=== PATIENT | male | born 1990 | race Caucasian/White ===

== ENCOUNTER → 2016-11-12 | Outpatient (CLI) | payer BC ==
[~2016-11-12] MED LIST: METH4TAB27 PO
[2016-11-12 11:23] VITALS: BP 120/87
--- NOTE | 2016-11-12 11:23 | Urgent Care T Sheet Gen (E) ---
Intake General Temperature (Fahrenheit): 98.8 Pulse: 85 Blood Pressure Systolic: 120 Blood Pressure Diastolic: 87 Respirations: 20 SPO2: 97 Description of Symptoms Patient presents with illness x 3 days. Notes PND and productive cough. No fever. No history of allergies. Patient works at [employer] and states he is around dust but wears a respirator always. No meds to treat his symptoms. patient thinks he has bronchitis. History of Present Illness Allergies: Coded Allergies: Penicillins (Verified Allergy, 11/12/16) Sulfa (Sulfonamide Antibiotics) (Verified Allergy, 11/12/16) Respiratory Constitutional Symptoms: No syptoms reported EENTM: No Nose Congestion, Throat pain Respiratory: CoughNo Short of breath, No Wheezing Cardiovascular: No symptoms reported Gastrointestinal/Abdominal: No symptoms reported All Other Systems Reviewed Remaining Systems: All other systems reviewed with negative findings Physical Exam Physical Exam General Appearance: WD/WN No apparent distress Eyes, Ears, Nose, Throat Ex: TMs normal Pharyngeal erythema (cobblestone appearance with thick PND) Other (nose is clear) Neck Exam: SuppleNo Lymphadenopathy Respiratory Exam: Lungs clear (didn't cough once during exam) Normal breath sounds Cardiovascular Exam: Regular rate, rhythm Departure Urgent Care Impression Impression: Primary Impression: URI (upper respiratory infection) Qualified Code: J00 - Acute nasopharyngitis [common cold] Departure Disposition: HOME OR SELF-CARE Condition: Stable Additional Instructions: Explained to the patient that he does not have bronchitis. He appears to have a viral URI, most likely a cold. He is afebrile and while he does have PND, which I can see, his lungs were clear. He hasn't taken any meds to treat his symptoms. I have started him on a Medrol dose pack to help with drainage. No NSAIDs while on steroid Also instructed him to take Robitussin for cough/congestion. If no better by Thursday, he may call the clinic and at that time, I will start him on a Zpak as he is allergic to sulfa and PCN Rest. Fluids Patient understands DC instructions. All questions were answered. Scripts Methylprednisolone (Medrol Dosepack)21 Tab/Pkt Tablet6 Tab PO DAILY Inflammation #1 PKT Ref 0 6 tabs po on day 1 then decrease by 1 tab daily until packet is gone Prov:JORGE KOROMA 11/12/16 End of report . JORGE KOROMA November 12, 2016 11:23
== END ==
LOC: MHUC 11:04
PROVIDERS: ATTEND Physician Assistant
DX: J00 Acute nasopharyngitis [common cold] (principal)
CPT/HCPCS: 99203